=== PATIENT | female | born 1980 | race Caucasian/White ===

== ENCOUNTER 2017-05-19 23:06 | Emergency (ER) | payer OTHER ==
[~2017-05-19] VITALS: Ht 160 cm; Wt 90.3 kg
--- NOTE | 2017-05-19 23:12 | ER Report ---
History and Physical Time Seen By MD: 23:10 HPI/ROS CHIEF COMPLAINT: Abdominal pain, back pain HISTORY OF PRESENT ILLNESS: 36-year-old female presents to the ER with abdominal pain and diarrhea. She was seen at urgent care earlier with back pain and was treated with Tamiflu, but apparently a flu test was not performed. Patient denies recent travel exposure to ill contacts or consumption of bad food. She denies recent embolic use. Patient denies dysuria , frequency or hematuria. REVIEW OF SYSTEMS: Respiratory: No cough, no dyspnea. Cardiovascular: No chest pain, no palpitations. Gastrointestinal: As above Musculoskeletal: As above Allergies: Coded Allergies: No Known Drug Allergies (Unverified , 05/19/17) Home Meds Active Scripts Tramadol Hcl (TRAMADOL HCL) 50 Mg Tablet, 1 TAB PO Q6H Y for PAIN, #15 MG TAKE ONE TO TWO TABLETS BY MOUTH EVERY FOUR TO SIX HOURS NEEDED Prov:ELIA TANG DO 05/20/17 Ondansetron Hcl (ZOFRAN) 4 Mg Tablet, 4 MG PO Q6H Y for NAUSEA/VOMITING, #10 Prov:ELIA TANG DO 05/20/17 Reported Medications Fexofenadine Hcl (HERBERT ALLERGY) 180 Mg Tablet, 180 MG PO QDAY 05/19/17 Fluticasone Prop 50 Mcg Ns (FLONASE 50 MCG NS) 16 Gm [place].susp, 2 SPRAYS NS QDAY, BOT 05/19/17 Montelukast Sodium (SINGULAIR) 10 Mg Tablet, 1 TAB PO QDAY, TAB 05/19/17 Oseltamivir Phosphate (TAMIFLU) 75 Mg Cap, 75 MG FT BID, CAP 05/19/17 Reviewed Nurses Notes: Yes Old Medical Records Reviewed: Yes Constitutional Vital Sign - Last 24 Hours 05/19/17 05/19/17 05/19/17 05/19/17 23:19 23:21 23:21 23:26 Pulse 94 110 91 Resp 18 B/P (MAP) 131/92 (105) 131/92 Pulse Ox 96 97 93 05/19/17 05/19/17 05/19/17 05/19/17 23:31 23:36 23:41 23:46 Pulse 84 84 86 82 Pulse Ox 93 95 94 94 05/19/17 23:51 Pulse 80 Pulse Ox 94 Physical Exam General Appearance: The patient is alert, has no immediate need for airway protection and no current signs of toxicity. Vital signs stable, afebrile, pulse ox normal HEENT: Pupils equal and round no injection. TMs normal, oropharynx with mild erythema, no exudate or petechiae Respiratory: Chest is non tender, lungs are clear to auscultation. Cardiac: regular rate and rhythm Gastrointestinal: Abdomen is soft and non tender, no masses, bowel sounds normal. Musculoskeletal: Neck: Neck is supple and non tender. No lymphadenopathy Extremities have full range of motion and are non tender. Skin: No rashes or lesions. DIFFERENTIAL DIAGNOSIS: After history and physical exam differential diagnosis was considered for abdominal pain including but not limited to appendicitis, cholecystitis, gastritis and urinary tract infection., Infectious diarrhea, food poisoning, viral syndrome Medical Decision Making Data Points Result Diagram: 05/19/17 0000 05/19/17 0000 Laboratory Hematology Test 05/19/17 00:00 05/19/17 00:05 Red Blood Count 5.03 M/uL (4.17-5.56) Mean Corpuscular Volume 88.7 fL (80.0-96.0) Mean Corpuscular Hemoglobin 30.3 pg (26.0-33.0) Mean Corpuscular Hemoglobin Concent 34.2 g/dL (32.0-36.0) Red Cell Distribution Width 13.0 % (11.5-14.5) Mean Platelet Volume 8.5 fL (7.2-11.1) Neutrophils (%) (Auto) 76.8 % (39.4-72.5) Lymphocytes (%) (Auto) 15.5 % (17.6-49.6) Monocytes (%) (Auto) 6.6 % (4.1-12.4) Eosinophils (%) (Auto) 0.7 % (0.4-6.7) Basophils (%) (Auto) 0.4 % (0.3-1.4) Nucleated RBC Relative Count (auto) 0.0 /100WBC Neutrophils # (Auto) 6.6 K/uL (2.0-7.4) Lymphocytes # (Auto) 1.3 K/uL (1.3-3.6) Monocytes # (Auto) 0.6 K/uL (0.3-1.0) Eosinophils # (Auto) 0.1 K/uL (0.0-0.5) Basophils # (Auto) 0.0 K/uL (0.0-0.1) Nucleated RBC Absolute Count (auto) 0.00 K/uL Sodium Level 135 mmol/L (137-145) Potassium Level 3.2 mmol/L (3.5-5.0) Chloride Level 101 mmol/L (98-107) Carbon Dioxide Level 22 mmol/L (22-31) Blood Urea Nitrogen 12 mg/dl (7-18) Creatinine 0.90 mg/dl (0.52-1.04) Glomerular Filtration Rate Calc > 60.0 Random Glucose 94 mg/dl (75-110) Calcium Level 8.5 mg/dl (8.4-10.2) Total Bilirubin 0.4 mg/dl (0.2-1.3) Aspartate Amino Transf (AST/SGOT) 25 U/L (0-35) Alanine Aminotransferase (ALT/SGPT) 34 U/L (0-56) Alkaline Phosphatase 79 U/L (0-126) Total Protein 7.2 gm/dl (6.3-8.2) Albumin 3.6 g/dl (3.5-5.0) Amylase Level 113 U/L (0-110) Lipase 238 U/L (23-300) Human Chorionic Gonadotropin, Qual Negative (NEGATIVE) Urine Color Yellow Urine Clarity Slightly-cloudy Urine pH 5.0 pH (4.8-9.5) Urine Specific [place] 1.023 Urine Protein Negative mg/dL (NEGATIVE) Urine Glucose (UA) Negative mg/dL (NEGATIVE) Urine Ketones Trace mg/dL (NEGATIVE) Urine Blood Moderate (NEGATIVE) Urine Nitrite Negative (NEGATIVE) Urine Bilirubin Negative (NEGATIVE) Urine Urobilinogen Negative mg/dL (0.2-1.9) Urine Leukocyte Esterase Negative (NEGATIVE) Urine RBC 10 /HPF (0-2/HPF) Urine WBC 2 /HPF (0-5/HPF) Urine Squamous Epithelial Cells Many /LPF (</=FEW) Urine Bacteria Negative /HPF (NONE-FEW) Urine Mucus Few /HPF (NONE-FEW) Influenza Virus Type A (PCR) Negative (NEGATIVE) Influenza Virus Type B (PCR) Negative (NEGATIVE) Chemistry Test 05/19/17 00:00 05/19/17 00:05 White Blood Count 8.6 k/uL (4.5-11.0) Red Blood Count 5.03 M/uL (4.17-5.56) Hemoglobin 15.3 g/dL (12.0-16.0) Hematocrit 44.6 % (34.0-47.0) Mean Corpuscular Volume 88.7 fL (80.0-96.0) Mean Corpuscular Hemoglobin 30.3 pg (26.0-33.0) Mean Corpuscular Hemoglobin Concent 34.2 g/dL (32.0-36.0) Red Cell Distribution Width 13.0 % (11.5-14.5) Platelet Count 186 K/uL (150-450) Mean Platelet Volume 8.5 fL (7.2-11.1) Neutrophils (%) (Auto) 76.8 % (39.4-72.5) Lymphocytes (%) (Auto) 15.5 % (17.6-49.6) Monocytes (%) (Auto) 6.6 % (4.1-12.4) Eosinophils (%) (Auto) 0.7 % (0.4-6.7) Basophils (%) (Auto) 0.4 % (0.3-1.4) Nucleated RBC Relative Count (auto) 0.0 /100WBC Neutrophils # (Auto) 6.6 K/uL (2.0-7.4) Lymphocytes # (Auto) 1.3 K/uL (1.3-3.6) Monocytes # (Auto) 0.6 K/uL (0.3-1.0) Eosinophils # (Auto) 0.1 K/uL (0.0-0.5) Basophils # (Auto) 0.0 K/uL (0.0-0.1) Nucleated RBC Absolute Count (auto) 0.00 K/uL Glomerular Filtration Rate Calc > 60.0 Calcium Level 8.5 mg/dl (8.4-10.2) Total Bilirubin 0.4 mg/dl (0.2-1.3) Aspartate Amino Transf (AST/SGOT) 25 U/L (0-35) Alanine Aminotransferase (ALT/SGPT) 34 U/L (0-56) Alkaline Phosphatase 79 U/L (0-126) Total Protein 7.2 gm/dl (6.3-8.2) Albumin 3.6 g/dl (3.5-5.0) Amylase Level 113 U/L (0-110) Lipase 238 U/L (23-300) Human Chorionic Gonadotropin, Qual Negative (NEGATIVE) Urine Color Yellow Urine Clarity Slightly-cloudy Urine pH 5.0 pH (4.8-9.5) Urine Specific [place] 1.023 Urine Protein Negative mg/dL (NEGATIVE) Urine Glucose (UA) Negative mg/dL (NEGATIVE) Urine Ketones Trace mg/dL (NEGATIVE) Urine Blood Moderate (NEGATIVE) Urine Nitrite Negative (NEGATIVE) Urine Bilirubin Negative (NEGATIVE) Urine Urobilinogen Negative mg/dL (0.2-1.9) Urine Leukocyte Esterase Negative (NEGATIVE) Urine RBC 10 /HPF (0-2/HPF) Urine WBC 2 /HPF (0-5/HPF) Urine Squamous Epithelial Cells Many /LPF (</=FEW) Urine Bacteria Negative /HPF (NONE-FEW) Urine Mucus Few /HPF (NONE-FEW) Influenza Virus Type A (PCR) Negative (NEGATIVE) Influenza Virus Type B (PCR) Negative (NEGATIVE) Urinalysis Test 05/19/17 00:05 Urine Color Yellow Urine Clarity Slightly-cloudy Urine pH 5.0 pH (4.8-9.5) Urine Specific [place] 1.023 Urine Protein Negative mg/dL (NEGATIVE) Urine Glucose (UA) Negative mg/dL (NEGATIVE) Urine Ketones Trace mg/dL (NEGATIVE) Urine Blood Moderate (NEGATIVE) Urine Nitrite Negative (NEGATIVE) Urine Bilirubin Negative (NEGATIVE) Urine Urobilinogen Negative mg/dL (0.2-1.9) Urine Leukocyte Esterase Negative (NEGATIVE) Urine RBC 10 /HPF (0-2/HPF) Urine WBC 2 /HPF (0-5/HPF) Urine Squamous Epithelial Cells Many /LPF (</=FEW) Urine Bacteria Negative /HPF (NONE-FEW) Urine Mucus Few /HPF (NONE-FEW) ED Course/Re-evaluation Clinical Indication for ER IV: Hydration, IV Access ED Course Patient was admitted to an examination room. H&P was done. The differential diagnoses was considered. Patient with back pain and diarrhea. I suspect she has colitis or bowel problems. Patient had a rapid influenza performed here which is negative. She is advised to discontinue the Tamiflu. She is advised conservative treatment. Clear liquid diet, ibuprofen for pain. Imodium for diarrhea. Follow-up with primary care if unimproved in 3-5 days. Decision to Disposition Date: May 20, 2017 Decision to Disposition Time: 00:41 Depart Departure Latest Vital Signs Vital Signs Date Time Temp Pulse Resp B/P (MAP) Pulse Ox O2 Delivery O2 Flow Rate FiO2 05/19/17 23:51 80 94 05/19/17 23:21 18 131/92 Impression: Primary Impression: Abdominal pain Additional Impression: Diarrhea Condition: Improved Disposition: HOME OR SELF-CARE New Scripts Tramadol Hcl (TRAMADOL HCL) 50 Mg Tablet 1 TAB PO Q6H Y for PAIN, #15 MG TAKE ONE TO TWO TABLETS BY MOUTH EVERY FOUR TO SIX HOURS NEEDED Prov: ELIA TANG DO 05/20/17 Ondansetron Hcl (ZOFRAN) 4 Mg Tablet 4 MG PO Q6H Y for NAUSEA/VOMITING, #10 Prov: ELIA TANG DO 05/20/17 Patient Instructions: Abdominal Pain (ED), Acute Diarrhea (ED), Clear Liquid Diet (ED) Additional Instructions: Take ibuprofen 200 mg 3 tablets 3 times a day for inflammatory pain relief Follow-up clear liquid diet for 24-48 hours, to rest her stomach and intestines , then advance through the brat diet, bananas, rice, applesauce and toast as tolerated Follow-up with your primary care if unimproved in 3-5 days. Problem Qualifiers Primary Impression: Abdominal pain Abdominal location: lower abdomen, unspecified Qualified Codes: R10.30 - Lower abdominal pain, unspecified Additional Impression: Diarrhea Diarrhea type: unspecified type Qualified Codes: R19.7 - Diarrhea, unspecified ELIA TANG DO May 19, 2017 23:12
[2017-05-19 23:21] VITALS: BP 131/92
[2017-05-19] MEDS ORDERED: ONDANSETRON 4 MG/2 ML VIAL IVP ONE (23:25)
[2017-05-19] MEDS ORDERED: FLUT16SP19 NS (23:27)
[2017-05-19] MEDS ORDERED: MONT10TA PO (23:27)
[2017-05-19] MEDS ORDERED: OSE75 FT (23:27)
[2017-05-19] MEDS ORDERED: FEXO-67 PO (23:27)
[2017-05-20 00:03] LABS: PLATELET COUNT, AUTOMATED 186 K/uL (150-450)
[2017-05-20] MEDS ORDERED: ONDA4TAB97 PO (00:48)
[2017-05-20] MEDS ORDERED: TRAM-420 PO (00:48)
[2017-05-20] MEDS ORDERED: ONDANSETRON 4 MG ODT TH SL ONE (00:50)
[2017-05-20] MEDS ORDERED: traMADol 50 MG TAB TH 2 TAB/BOTTLE PO ONE (00:50)
== END 2017-05-20 01:16 | disposition home or self-care (01) ==
LOC: ER 23:50
DX: R19.7 Diarrhea, unspecified (principal); R10.30 Lower abdominal pain, unspecified
CPT/HCPCS: 81001; 82150; 83690; 84703; 85025; 87502; 99283; C9399; S0119; 82040; 82247; 82310; 82374; 82435; 82565; 82947; 84075; 84132; 84155; 84295; 84450; 84460; 84520

== ENCOUNTER → 2017-08-08 | Outpatient (CLI) | payer OTHER ==
[~2017-08-08] MED LIST: FEXO-67 PO; FLUT16SP19 NS; MONT10TA PO; ONDA4TAB97 PO; OSE75 FT; TRAM-420 PO
--- NOTE | 2017-08-08 16:43 | EKG ---
FACILITY: [facility] PATIENT NAME: STEFANO HODGES : [id number] MR: [id number] V: [id number] EXAM DATE: ORDERING PHYSICIAN: ANRCISO SERNA TECHNOLOGIST: Anthony Lofton Reason : Blood Pressure : / mmHG Vent. Rate : 074 BPM Atrial Rate : 074 BPM P-R Int : 174 ms QRS Dur : 076 ms QT Int : 394 ms P-R-T Axes : 034 059 027 degrees QTc Int : 437 ms Normal sinus rhythm Normal ECG No previous ECGs available Confirmed by TIMOTHY MALCOLM ([id number]) on 08/09/2017 6:26:21 AM Referred By: Confirmed By:TIMOTHY MALCOLM
== END ==
LOC: CARD 16:29
PROVIDERS: ATTEND Obstetrics & Gynecology
DX: R00.0 Tachycardia, unspecified (principal); Z3A.12 12 weeks gestation of pregnancy
CPT/HCPCS: 93005

== ENCOUNTER → 2018-01-31 | Outpatient (CLI) | payer OTHER ==
[~2018-01-31] VITALS: Ht 160 cm; Wt 113.4 kg
[~2018-01-31] MED LIST changes: +APAP/HYDROCODONE 325/5 TAB PO PRN; +LR(*) 1000 ML BAG 1,000 ML IV SCH
[2018-01-31 16:00] VITALS: Ht 160 cm; Wt 113.4 kg
== END ==
LOC: OB 15:18 → L&D 15:18 → UNDOADMIN 15:18 → UNDODISIN 19:45 → EDSTATUS 02-16 15:51
PROVIDERS: ATTEND Obstetrics & Gynecology
DX: O26.893 Other specified pregnancy related conditions, third trimester (principal); Z3A.37 37 weeks gestation of pregnancy
CPT/HCPCS: 59025; 81001; 84112; J7120

== ENCOUNTER 2018-02-03 05:49 | Inpatient (IN) | payer OTHER ==
[~2018-02-03] VITALS: Ht 160 cm; Wt 112.9 kg
[~2018-02-03 05:49] MED LIST changes: -APAP/HYDROCODONE 325/5 TAB PO PRN; -LR(*) 1000 ML BAG 1,000 ML IV SCH
[2018-02-03] MEDS ORDERED: OXYTOCIN 30 UNIT/D5LR 500 ML 500 ML IV PRN (05:53)
[2018-02-03] MEDS ORDERED: FAMOTIDINE(*) 20MG/50ML PREMIX 50 ML IVPB PRN (05:53)
[2018-02-03] MEDS ORDERED: LIDOCAINE/SOD BICARB 8.4% SYR SC PRN (05:55)
[2018-02-03] MEDS ORDERED: fentaNYL CITR 100 MCG/2 ML AMP IVP PRN (05:55)
[2018-02-03] MEDS ORDERED: LIDOCAINE 1% LOCAL 300 MG/30ML INJ PRN (05:55)
[2018-02-03] MEDS ORDERED: METOCLOPRAMIDE 10 MG/2 ML SDV IVP PRN (05:55)
[2018-02-03] MEDS ORDERED: cefOXitin/DEX(*) 2GM/50ML PREM 50 ML IVPB PRN (05:55)
[2018-02-03] MEDS ORDERED: ACETAMINOPHEN 500 MG TAB PO PRN (05:55)
[2018-02-03] MEDS ORDERED: CALCIUM CARBONATE 500 MG CHEW PO PRN (05:55)
[2018-02-03] MEDS ORDERED: TERBUTALINE SULF 1 MG/ML VIAL SUBQ PRN (05:55)
[2018-02-03] MEDS ORDERED: ONDANSETRON 4 MG/2 ML VIAL IVP PRN (05:55)
[2018-02-03 06:05] VITALS: BP 138/80; Ht 160 cm; Wt 112.9 kg
[2018-02-03] MEDS ORDERED: LR(*) 1000 ML BAG 1,000 ML ONE (06:14)
[2018-02-03] MEDS: LR(*) 1000 ML BAG 1,000 ML IV PRN ×3 (06:29→13:29)
[2018-02-03 06:37] LABS: PLATELET COUNT, AUTOMATED 178 K/uL (150-450)
[2018-02-03] MEDS ORDERED: BUPIVACAINE 0.25% MPF INJ EPI PRN (07:30)
[2018-02-03] MEDS ORDERED: FENTANYL/ROPIVACAINE 100 ML BAG EPI PRN (07:30)
[2018-02-03] MEDS ORDERED: fentaNYL CITR 100 MCG/2 ML AMP IT PRN (07:30)
[2018-02-03] MEDS ORDERED: LIDOCAINE/PF 2% 200MG/10ML AMP 200 MG/10 ML AMPUL EPI PRN (07:30)
[2018-02-03] MEDS ORDERED: EPIDURAL KEYS XX PRN (07:30)
[2018-02-03] MEDS ORDERED: BUPIVACAINE 0.5% INJ 30ML VIAL EPI PRN (07:30)
[2018-02-03] MEDS ORDERED: LIDO/EPI 2% MPF 1:200,000 20ML EPI PRN (07:30)
--- NOTE | 2018-02-03 08:31 | History & Physical ---
History of Present Illness Age of Patient: 37 : 2 Para or TPAL: 1 EDC per LMP: Feb 17, 2018 Estimated Gestational Age: 38 Chief Complaint Labor induction History of Present Illness Presents for scheduled labor induction. Was seen yesterday in the office for routine visit and BP was slightly elevated compared to prior. Cervix was 3 cm and 100% and soft. Scheduled for today due to gestational hypertension and history of pre-eclampsia in prior . She has a history of LEEP and I can feel the scar as well. further complicated by advanced maternal age but declined genetic screening. Apos, Rub immune, GBS negative. Past Medical, Surgical, Family and Obstetric Histories reviewed. Please see AC chart. History Patient's Blood Type: A Positive Rubella Status: Immune Group B Strep Screen: Negative Allergies: Coded Allergies: No Known Drug Allergies (Unverified , 05/19/17) Med Rec Home Meds Active Scripts Tramadol Hcl (TRAMADOL HCL) 50 Mg Tablet, 1 TAB PO Q6H PRN for PAIN, #15 MG TAKE ONE TO TWO TABLETS BY MOUTH EVERY FOUR TO SIX HOURS NEEDED Prov:ELIA TANG Caity DO 05/20/17 Ondansetron Hcl (ZOFRAN) 4 Mg Tablet, 4 MG PO Q6H PRN for NAUSEA/VOMITING, #10 Prov:ELIA TANG DO 05/20/17 Reported Medications Fexofenadine Hcl (HERBERT ALLERGY) 180 Mg Tablet, 180 MG PO QDAY 05/19/17 Fluticasone Prop 50 Mcg Ns (FLONASE 50 MCG NS) 16 Gm [place].susp, 2 SPRAYS NS QDAY, BOT 05/19/17 Montelukast Sodium (SINGULAIR) 10 Mg Tablet, 1 TAB PO QDAY, TAB 05/19/17 Oseltamivir Phosphate (TAMIFLU) 75 Mg Cap, 75 MG FT BID, CAP 05/19/17 Review of Systems All Systems Reviewed/Normal: Yes, Except as Noted Neurological: No Syncope Gastrointestinal: No Nausea, No Vomiting, No Abdominal Pain Exam General Exam Vital Signs Vital Signs Date Time Temp Pulse Resp B/P (MAP) Pulse Ox O2 Delivery O2 Flow Rate FiO2 02/03/18 06:05 97.2 88 17 138/80 (99) 97 Room Air General Apperance: Alert/Awake/No Acute Distress Neuro: No Gross deficits Eyes: Normal Extraocular Movement & Vison Cardiovascular: Regular Rate and Rhythm Respiratory: No Respiratory Distress Abdomen: Soft, Non-Tender, Non-Distended, Gravid - Non-Tender Integumentary: Skin Intact without Lesions or Rash Psychological: Alert & Oriented X3, Appropriate Mood & Affect Cervical Dialation: 5 Cervical Effacement (%): 100 Cervical Consistency: Soft Cervical Position: Anterior Station: -2 Presentation: Vertex Fetus Heart Tone Variabilty: Moderate FHT Accelerations: 15X15 FHT Category: I Medical Decision Making Data Points Result Diagram: 02/03/1823 02/03/18622 Hematology Test 02/03/18 06:00 02/03/18 06:23 Urine Random Creatinine 250.3 mg/dl Urine Random Total Protein 9 mg/dl (<11) Red Blood Count 4.57 M/uL (4.17-5.56) Mean Corpuscular Volume 89.7 fL (80.0-96.0) Mean Corpuscular Hemoglobin 30.4 pg (26.0-33.0) Mean Corpuscular Hemoglobin Concent 33.9 g/dL (32.0-36.0) Red Cell Distribution Width 14.2 % (11.5-14.5) Mean Platelet Volume 8.7 fL (7.2-11.1) Neutrophils (%) (Auto) 69.2 % (39.4-72.5) Lymphocytes (%) (Auto) 20.6 % (17.6-49.6) Monocytes (%) (Auto) 8.0 % (4.1-12.4) Eosinophils (%) (Auto) 1.4 % (0.4-6.7) Basophils (%) (Auto) 0.8 % (0.3-1.4) Nucleated RBC Relative Count (auto) 0.0 /100WBC Neutrophils # (Auto) 7.6 K/uL (2.0-7.4) Lymphocytes # (Auto) 2.3 K/uL (1.3-3.6) Monocytes # (Auto) 0.9 K/uL (0.3-1.0) Eosinophils # (Auto) 0.2 K/uL (0.0-0.5) Basophils # (Auto) 0.1 K/uL (0.0-0.1) Nucleated RBC Absolute Count (auto) 0.00 K/uL Sodium Level 135 mmol/L (137-145) Potassium Level 3.8 mmol/L (3.5-5.0) Chloride Level 104 mmol/L (98-107) Carbon Dioxide Level 21 mmol/L (22-31) Blood Urea Nitrogen 14 mg/dl (7-18) Creatinine 0.80 mg/dl (0.52-1.04) Glomerular Filtration Rate Calc > 60.0 Random Glucose 84 mg/dl (75-110) Uric Acid 6.1 mg/dl (2.5-7.5) Calcium Level 8.8 mg/dl (8.4-10.2) Total Bilirubin 0.3 mg/dl (0.2-1.3) Aspartate Amino Transf (AST/SGOT) 26 U/L (0-35) Alanine Aminotransferase (ALT/SGPT) 40 U/L (0-56) Alkaline Phosphatase 125 U/L (0-126) Lactate Dehydrogenase 407 U/L (0-590) Total Protein 6.7 g/dl (6.3-8.2) Albumin 3.2 g/dl (3.5-5.0) HIV (1&2) Antibody Negative (NEGATIVE) Chemistry Test 02/03/18 06:00 02/03/18 06:23 Urine Random Creatinine 250.3 mg/dl Urine Random Total Protein 9 mg/dl (<11) White Blood Count 10.9 k/uL (4.5-11.0) Red Blood Count 4.57 M/uL (4.17-5.56) Hemoglobin 13.9 g/dL (12.0-16.0) Hematocrit 41.0 % (34.0-47.0) Mean Corpuscular Volume 89.7 fL (80.0-96.0) Mean Corpuscular Hemoglobin 30.4 pg (26.0-33.0) Mean Corpuscular Hemoglobin Concent 33.9 g/dL (32.0-36.0) Red Cell Distribution Width 14.2 % (11.5-14.5) Platelet Count 178 K/uL (150-450) Mean Platelet Volume 8.7 fL (7.2-11.1) Neutrophils (%) (Auto) 69.2 % (39.4-72.5) Lymphocytes (%) (Auto) 20.6 % (17.6-49.6) Monocytes (%) (Auto) 8.0 % (4.1-12.4) Eosinophils (%) (Auto) 1.4 % (0.4-6.7) Basophils (%) (Auto) 0.8 % (0.3-1.4) Nucleated RBC Relative Count (auto) 0.0 /100WBC Neutrophils # (Auto) 7.6 K/uL (2.0-7.4) Lymphocytes # (Auto) 2.3 K/uL (1.3-3.6) Monocytes # (Auto) 0.9 K/uL (0.3-1.0) Eosinophils # (Auto) 0.2 K/uL (0.0-0.5) Basophils # (Auto) 0.1 K/uL (0.0-0.1) Nucleated RBC Absolute Count (auto) 0.00 K/uL Glomerular Filtration Rate Calc > 60.0 Uric Acid 6.1 mg/dl (2.5-7.5) Calcium Level 8.8 mg/dl (8.4-10.2) Total Bilirubin 0.3 mg/dl (0.2-1.3) Aspartate Amino Transf (AST/SGOT) 26 U/L (0-35) Alanine Aminotransferase (ALT/SGPT) 40 U/L (0-56) Alkaline Phosphatase 125 U/L (0-126) Lactate Dehydrogenase 407 U/L (0-590) Total Protein 6.7 g/dl (6.3-8.2) Albumin 3.2 g/dl (3.5-5.0) HIV (1&2) Antibody Negative (NEGATIVE) Urinalysis Test 02/03/18 06:00 Urine Random Creatinine 250.3 mg/dl Urine Random Total Protein 9 mg/dl (<11) VTE Prophylasis: Adult Deep Vein Thrombosis/Pulmonary: No Pharmacological Contraindicati: Pt at Low Risk for VTE Mechanical Contraindications: Pt at Low Risk for VTE Assessment and Plan WARD HELPER Plan: Routine Labor/Induct Care Problems: (1) 38 weeks gestation of (2) Gestational hypertension Assessment & Plan: IOL with Pitocin today. Expecting . Pt desires epidural. Problem Qualifiers (1) Gestational hypertension: Trimester: third trimester Qualified Codes: O13.3 - Gestational [- induced] hypertension without significant proteinuria, third trimester TAMMY,DELFINO MD Feb 03, 2018 08:31
--- NOTE | 2018-02-03 12:44 | Labor Progress Note ---
Labor Subjective Progress Notes Subjective Epidural in place. Has been leaking fluid but was felt to have a forebag on last exam. Difficulty tracing contractions in certain positions. Vaginal Discharge/Fluid: Bloody Show Labor Pain: Mild Labor Objective Vital Signs Vital Signs Date Time Temp Pulse Resp B/P (MAP) Pulse Ox O2 Delivery O2 Flow Rate FiO2 02/03/18 06:05 97.2 88 17 138/80 (99) 97 Room Air Vaginal Discharge/Fluid?: Bloody Show Cervical Dialation: 6 Cervical Effacement (%): 100 Cervical Consistency: Soft Station: -1 Presentation: Vertex Fetus Heart Tone Variabilty: Moderate FHT Accelerations: 15X15 FHT Decelerations: Early FHT Category: I Other Result Diagram: 02/03/1862202/03/18622 Assessment and Plan Problems: (1) 38 weeks gestation of (2) Gestational hypertension Assessment & Plan: IUPC place to assist with tracing contractions and titration of Pitocin. Expecting still. Problem Qualifiers (1) Gestational hypertension: Trimester: third trimester Qualified Codes: O13.3 - Gestational [- induced] hypertension without significant proteinuria, third trimester DELFINO MUNOZ MD Feb 03, 2018 12:44
[2018-02-03] MEDS ORDERED: BENZOCAINE 20% 60 ML BTL TP PRN (16:35)
[2018-02-03] MEDS ORDERED: ACETAMINOPHEN 325 MG TAB PO PRN (16:35)
[2018-02-03] MEDS ORDERED: LANOLIN OINT 7 GM TUBE TP PRN (16:35)
[2018-02-03] MEDS ORDERED: HYDROCORTISONE 2.5% CR 30GM TB PR PRN (16:35)
[2018-02-03] MEDS ORDERED: MAGNESIUM HYDROXIDE* 30ML UDCP PO PRN (16:35)
[2018-02-03] MEDS ORDERED: APAP/HYDROCODONE 325/5 TAB PO PRN (16:35)
[2018-02-03] MEDS ORDERED: GLYCERIN/WITCH HAZEL LEAF 1 PK TP PRN (16:35)
[2018-02-03] MEDS ORDERED: MEASLES,MUMP,RUBELLA VAC 0.5ML SUBQ ONE (16:35)
--- NOTE | 2018-02-03 16:42 | OB Delivery Note ---
Delivery Note Vaginal Delivery Type: Spont. Vaginal Delivery Delivery Date: Feb 03, 2018 Delivery Time: 16:10 Estimated Gestational Age(wks): 38 Delivery Anesthesia: Epidural Sex: Female Apgars: 1 Minute (8), 5 Minute (9) Estimated Blood Loss: 500 Delivery Complications: Retained Placenta (requiring manual extraction) Notes: Presented for IOL due to gestational hypertension. Admitted at 3 cm and progressed to 5 cm by 0819. AROM with clear fluid then and progressed to 6 cm [id number]. Epidural placed and continued to progress to 9 cm [id number] and then complete and +2 station by 1439. Pushing effectively, pt brought baby in JESIKA position to . Perineum stabilized and delivery in JESIKA position. Gentle downward deflection of head with a maternal push effected delivery of the remainder of the baby. Short cord noted and had to be cut at the perineum. Placenta would not separate and had to be manually extracted. IV abx given and Cytotec 800 mcg given rectally. Verified removal of entire placenta with 2 additional passes to remove tissue and clot. No repair needed. Roaster Supervisor in Attendence: No Copies to: DELFINO MUNOZ MD ; DELFINO MUNOZ MD Feb 03, 2018 16:41
[2018-02-03] MEDS: IBUPROFEN 800 MG TAB PO SCH (17:08)
[2018-02-03] MEDS ORDERED: MISOPROSTOL 200 MCG TAB ONE (17:12)
[2018-02-03] MEDS ORDERED: ceFAZolin(*) 2GM/D5W 50ML 50 ML IVPB ONE (17:12)
--- NOTE | 2018-02-03 17:46 | Anesthesia OB Pre-Anes Eval ---
History of Present Illness Anesthesia Start Date: Feb 03, 2018 Anesthesia Start Time: 08:55 OB Anesthesia Diagnosis: gestational hypertension, induction - medical, other (AROM) Current Complication: gestational hypertention, obesity EDC: Feb 17, 2018 : 2 Para: 1 Pain Ratin Result Diagram: 02/03/1862202/03/18622 Height (Inches): 63.00 Weight (Pounds): 249 BMI Calculated: 44.10 Past Medical History Medical History: asthma (Exercise induced, no recent exacerbations.) Surgical History: noncontributory Previous Anesthesia: general, epidural Attended Childbirth Classes?: No Hx Anesthesia Reactions: No Hx Family Anesthesia Reaction: No Past Complications: gestational hypertention Home Meds Active Scripts Tramadol Hcl (TRAMADOL HCL) 50 Mg Tablet, 1 TAB PO Q6H PRN for PAIN, #15 MG TAKE ONE TO TWO TABLETS BY MOUTH EVERY FOUR TO SIX HOURS NEEDED Prov:ELIA TANG DO 05/20/17 Ondansetron Hcl (ZOFRAN) 4 Mg Tablet, 4 MG PO Q6H PRN for NAUSEA/VOMITING, #10 Prov:ELIA TANG DO 05/20/17 Reported Medications Fexofenadine Hcl (HERBERT ALLERGY) 180 Mg Tablet, 180 MG PO QDAY 05/19/17 Fluticasone Prop 50 Mcg Ns (FLONASE 50 MCG NS) 16 Gm [place].susp, 2 SPRAYS NS QDAY, BOT 05/19/17 Montelukast Sodium (SINGULAIR) 10 Mg Tablet, 1 TAB PO QDAY, TAB 05/19/17 Oseltamivir Phosphate (TAMIFLU) 75 Mg Cap, 75 MG FT BID, CAP 05/19/17 Allergies: Coded Allergies: No Known Drug Allergies (Unverified , 05/19/17) Anesthesia OB ROS Airway Class: l Cardiovascular ROS: edema (Peripheral) GI ROS: clear liquids, ice chips Last Solids Date: Feb 02, 2018 Last Solids Time: 20:00 ASA Classification: 2 Assessment and Plan Anesthesia Plan: KOLBY Anesthesia Stop Day: Feb 03, 2018 Anesthesia Stop Time: 16:30 Epidural Catheter Removal: Removed by: (Catheter will be removed later by RN at more convenient time. ) KATYA CANALES CRNA Feb 03, 2018 10:28
--- NOTE | 2018-02-03 17:53 | Procedure Note ---
Anesthetic Placement Note Anesthesia Plan: LEB Permit for Anesthesia Signed: Yes Anesthesia Technique: Patient Sitting Anesthesia Prep: Betadine Interspace: L 4-5 Local Anesthetic: 1% Lidocaine, 25 Gauge Needle Amount Local - cc's: 5 Anesthesia Needle: 17g Touhy/Schliff Anesthesia Attempts: 2 Loss of Resistance: Normal Saline Depth of RAJINDER (cm): 7.5 Cerebral Spinal Fluid: No Catheter Insertion (cm): 6 Catheter Type: Recio - Spring Wound Epidural Dressing: Tegaderm, Tape, Adhesive [place] Anesthesia Tray: Lot Number ([id number]), Expiration Date (2019-01-04), Reference Number ([id number]) Anesthesia Medications: Epidural Test Dose: 1.5 Lido/Epi (1:200,000), Dose - mL (3), Time (926), Negative (No symptoms IT or IV injection.) Epidural Loading Dose: 0.2% Ropivicaine, With Fentanyl 2mcg/ml, Dose - ml (15ml in 5ml increments.), Time (931) Epidural Infusion: 0.2% Ropivicaine, With Fentanyl 2mcg/ml, Start Time: (951) Epidural Pump Setting: Bolus Dose - mL (5), Lockout - Minutes (15), Maintenance Rate - mL/hr (10), Maximum per Hour - mL (25) Complications: None Comment: Good analgesia, minimal motor block, initially L>R, pt positioned on Rt side, eventually evened out, R=L. VSS, FHR stable. One dose of Ephedrine 10mg IVP for BP support. 1215 Pt. C/O profound motor block LLE. Infusion paused, will restart at 1245. Catheter pulled back 1cm, infusion restarted at 6ml/hour and with same bolus parameters. 1530 Motor still greater on left, not as pronounced. Good analgesia, pt. will be laboring for approximately 1 hour, then begin pushing. 1630 Infusion discontinued following uneventful vaginal delivery at approximately 1610. KATYA CANALES CRNA Feb 03, 2018 10:34
[2018-02-03 19:10] VITALS: BP 109/52
[2018-02-03] MEDS: DOCUSATE CALCIUM 240 MG CAP PO SCH (20:32)
[2018-02-04] VITALS (7 sets, daily range): BP systolic 102–145; BP diastolic 51–70
[2018-02-04] MEDS: IBUPROFEN 800 MG TAB PO SCH ×3 (00:18→16:23)
--- NOTE | 2018-02-04 08:01 | Anesthesia Post Eval Note ---
Anesthesia Post Eval Note Stabil, afebrile. Pt able to participate in Eval: Yes Cardiovascular Status: Satisfactory Respiratory Status: Satisfactory Pain Managment: Satisfactory PO Nausea/Vomiting: Satisfactory Temperature Management: Satisfactory Mental Status: Satisfactory, Alert, Oriented X3 Post-Op Hydration Status: Satisfactory, Tolerating PO Well, Voiding w/o Difficulty Anesthesia Type: LEB Anesthesia Tolerance: Ambulatory without symptoms PDPH, no apparent complications. KATYA CANALES DECAL APPLIER Feb 04, 2018 08:01
[2018-02-04] MEDS: DOCUSATE CALCIUM 240 MG CAP PO SCH (08:21)
--- NOTE | 2018-02-04 09:02 | OB/GYN Progress Note ---
OB Subjective Progress Notes Subjective Doing very well. Up to bathroom and voiding well. Bleeding typical and pain controlled. GI: NEG Nausea : Voiding Well Pain: Mild OB Objective Physical Exam Vital Signs Date Time Temp Pulse Resp B/P (MAP) Pulse Ox O2 Delivery O2 Flow Rate FiO2 02/04/18 02:50 73 120/70 (87) 02/04/18 00:02 97.5 17 96 02/03/18 20:40 Room Air Intake and Output 02/04/18 06:59 Intake Total 3550 ml Output Total 750 ml Balance 2800 ml Intake IV Total 3550 ml Output Urine Total 750 ml General Appearance: Alert/Awake/No Acute Distress Neurological: No Gross deficits Eyes: Normal Extraocular Movement & Vison Cardiovascular: Normal Rhythm & Peripheral Pulses, Regular Rate and Rhythm Respiratory: No Respiratory Distress Abdomen: Soft, Non-Tender, Non-Distended, Fundus Firm, Non-Tender Integumentary: Skin Intact without Lesions or Rash Psychological: Alert & Oriented X3, Appropriate Mood & Affect Result Diagram: 02/04/18 0610 02/03/18 0623 Assessment and Plan RELIEF MATE Plan: Routine Post- Care, Discharge Home Today Problems: (1) 38 weeks gestation of (2) Gestational hypertension (3) care and examination immediately after delivery Assessment & Plan: f/u at 6 weeks. Discharge instructions reviewed. Problem Qualifiers (1) Gestational hypertension: Trimester: third trimester Qualified Codes: O13.3 - Gestational [- induced] hypertension without significant proteinuria, third trimester DELFINO MUNOZ MD Feb 04, 2018 09:02
[2018-02-04] MEDS ORDERED: IBUP800T37 PO (09:03)
--- NOTE | 2018-02-04 09:05 | OB/GYN Discharge Summary ---
Discharge Summary Reason for Hosp/Final Diag: (1) 38 weeks gestation of (2) Gestational hypertension (3) care and examination immediately after delivery Hospital Course & Plan: f/u at 6 weeks. Discharge instructions reviewed. Lates Vital Signs Vital Signs Date Time Temp Pulse Resp B/P (MAP) Pulse Ox O2 Delivery O2 Flow Rate FiO2 02/04/18 02:50 73 120/70 (87) 02/04/18 00:02 97.5 17 96 02/03/18 20:40 Room Air Weight (Pounds): 249 Result Diagram: 02/04/18 0610 02/03/1823 Condition: Improved Discharge: Home, Self Retirement Meds Active Scripts Tramadol Hcl (TRAMADOL HCL) 50 Mg Tablet, 1 TAB PO Q6H PRN for PAIN, #15 MG TAKE ONE TO TWO TABLETS BY MOUTH EVERY FOUR TO SIX HOURS NEEDED Prov:ELIA TANG DO 05/20/17 Ondansetron Hcl (ZOFRAN) 4 Mg Tablet, 4 MG PO Q6H PRN for NAUSEA/VOMITING, #10 Prov:ELIA TANG DO 05/20/17 Reported Medications Fexofenadine Hcl (HERBERT ALLERGY) 180 Mg Tablet, 180 MG PO QDAY 05/19/17 Fluticasone Prop 50 Mcg Ns (FLONASE 50 MCG NS) 16 Gm [place].susp, 2 SPRAYS NS QDAY, BOT 05/19/17 Montelukast Sodium (SINGULAIR) 10 Mg Tablet, 1 TAB PO QDAY, TAB 05/19/17 Oseltamivir Phosphate (TAMIFLU) 75 Mg Cap, 75 MG FT BID, CAP 05/19/17 Follow up Referrals: [facility] - In 6 Weeks @ [facility] with DELFINO MERRITT MD Follow up with: Dr. Merritt [phone] Follow up in: 6 wks PP or PO Discharge Diet: As Tolerates Discharge Activity: As Tolerates, No Heavy Lifting x 6 wks, No Heavy Lifting > 10lb, Pelvic Rest Copies to: DELFINO MERRITT MD ; Problem Qualifiers (1) Gestational hypertension: Trimester: third trimester Qualified Codes: O13.3 - Gestational [- induced] hypertension without significant proteinuria, third trimester DELFINO MERRITT MD Feb 04, 2018 09:05
[2018-02-05] MEDS ORDERED: INFLUENZA VIRUS VAC 0.5ML SYR IM ONLY ONE (09:00)
[2018-02-05] MEDS ORDERED: MEASLES,MUMP,RUBELLA VAC 0.5ML SUBQ ONE (09:00)
[2018-02-05] MEDS ORDERED: DIPHTH/TETANUS/ACEL. PERTUSSIS IM ONLY ONE (09:00)
== END 2018-02-04 18:00 | disposition home or self-care (01) | DRG 806 ==
LOC: OB 05:49
PROVIDERS: ADMIT Obstetrics & Gynecology; ATTEND Obstetrics & Gynecology
PROC: 10E0XZZ Delivery of Products of Conception, External Approach (ICD-10-PCS; principal; 2018-02-03)
PROC: 10D17Z9 Manual Extraction of Products of Conception, Retained, Via Natural or Artificial Opening (ICD-10-PCS; 2018-02-03)
PROC: 10907ZC Drainage of Amniotic Fluid, Therapeutic from Products of Conception, Via Natural or Artificial Opening (ICD-10-PCS; 2018-02-03)
PROC: 10H07YZ Insertion of Other Device into Products of Conception, Via Natural or Artificial Opening (ICD-10-PCS; 2018-02-03)
PROC: 4A1H74Z Monitoring of Products of Conception, Cardiac Electrical Activity, Via Natural or Artificial Opening (ICD-10-PCS; 2018-02-03)
PROC: 3E033VJ Introduction of Other Hormone into Peripheral Vein, Percutaneous Approach (ICD-10-PCS; 2018-02-03)
DX: O13.4 Gestational [pregnancy-induced] hypertension without significant proteinuria, complicating childbirth (principal); Z68.41 Body mass index [BMI] 40.0-44.9, adult; Z37.0 Single live birth; O73.0 Retained placenta without hemorrhage; O99.214 Obesity complicating childbirth; E66.9 Obesity, unspecified; Z3A.38 38 weeks gestation of pregnancy
CPT/HCPCS: 36415; 82040; 82247; 82310; 82374; 82435; 82565; 82570; 82947; 83615; 84075; 84132; 84155; 84156; 84295; 84450; 84460; 84520; 84550; 85025; 85027; 86703; 86850; 86900; 86901; J0690; J2590; J7120